=== PATIENT | female | born 1970 ===

== ENCOUNTER 2017-10-14 08:25 | Day surgery (SDC) | payer OTHER ==
[~2017-10-14 08:25] MED LIST: ATORVASTATIN CA10 MG PO; EXFORGE 5-1601 EACH PO; HYDROCHLOROTHIA25 MG PO; [UNRECOGNIZED DRUG - CODE] PO
[2017-10-14] MEDS ORDERED: NAPROXEN SODIU550 MG PO (17:23)
== END 2017-10-14 21:45 | disposition home or self-care (01) ==
LOC: CIR.AMB 08:25
DX: N95.0 Postmenopausal bleeding (principal)